=== PATIENT | male | born 1965 | race Hispanic/Latino ===

== ENCOUNTER 2024-03-14 03:30 | Emergency (ER) | payer OTHER ==
[~2024-03-14] VITALS: Ht 162.6 cm; Wt 61.2 kg
[~2024-03-14 03:30] MED LIST: ATOR20TA65 PO; DAPA10TA PO; GEMF600T89 PO; GLIP5TAB15 PO; INSU300I SQ; LISI2.5T13 PO; METF-444 PO
[2024-03-14] MEDS: PREDNISOLONE 15 MG/5 ML SOLN PO SCH (03:41)
[2024-03-14] MEDS: Solu-medROL 125MG VIAL IVP ONE (03:41)
[2024-03-14] MEDS: DiphenhydrAMINE HCL 50 MG/ML VIAL IV ONE (03:41)
[2024-03-14] MEDS: FAMOTIDINE 20MG VIAL IV ONE (03:42)
[2024-03-14 03:47] VITALS: TEMP 97.8
[2024-03-14 03:52] LABS: HEMATOCRIT 39.4 % (42-54); MEAN CORPUSCULAR VOLUME 87.8 fL (79-99); RED BLOOD CELL COUNT(AUTO) 4.49 MIL/uL (4.50-6.20); RED CELL DISTRIBUTION WIDTH 13.8 % (11.0-15.5)
[2024-03-14 04:01] LABS: CREATININE 1.4 mg/dL (0.5-1.3); POTASSIUM 3.6 mmol/L (3.5-5.1)
[2024-03-14] MEDS: 0.9%NACL 1000ML 1,000 ML IV ONE (04:11)
[2024-03-14] MEDS ORDERED: FAMO-136 PO (04:40)
[2024-03-14] MEDS ORDERED: LORA10TA7 PO (04:40)
[2024-03-14] MEDS ORDERED: PRED5TAB PO (04:40)
[2024-03-14 04:41] VITALS: BP 155/62; PULSE 88; RESP 18; O2SAT 99
== END 2024-03-14 04:45 | disposition home or self-care (01) ==
LOC: EDH 03:30
DX: T78.1XXA Other adverse food reactions, not elsewhere classified, initial encounter (principal); R22.9 Localized swelling, mass and lump, unspecified; E11.9 Type 2 diabetes mellitus without complications; E78.00 Pure hypercholesterolemia, unspecified; Z79.4 Long term (current) use of insulin; Z79.52 Long term (current) use of systemic steroids; Z79.84 Long term (current) use of oral hypoglycemic drugs; Z79.899 Other long term (current) drug therapy; Z90.49 Acquired absence of other specified parts of digestive tract; Z90.89 Acquired absence of other organs; X58.XXXA Exposure to other specified factors, initial encounter
CPT/HCPCS: 99284; 96374; 96375; 96361; 80048; 85027; 36415; J1200; J3490; J7030; J2919